=== PATIENT | female | born 1985 | race Native Hawaiian/Other Pacific Islander ===

== ENCOUNTER 2016-11-13 23:06 | Emergency (ER) | payer MEDICAID, OTHER ==
[2016-11-13 23:07] VITALS: BMI 23.8
[2016-11-13 23:24] VITALS: BP 100/50; PULSE 86; RESP 16; TEMP 97; O2SAT 100
--- NOTE | 2016-11-14 00:45 | C.PDOC ---
History Of Present Illness Patient is a 30 year old female who is P:1011 presents to the ER with a complaint of a rash on the genital and buttocks area for the past 2 days. Patient states it is tender to touch and notes mild nausea during with occasional vomiting, LMP was 07/28. Patient denies dysuria, hematuria, discharge from rash, vaginal bleeding, or vaginal discharge. Chief Complaint (Nursing): Abnormal Skin Integrity History Per: Patient History/Exam Limitations: no limitations Onset/Duration Of Symptoms: Days (2) Current Symptoms Are (Timing): Still Present Quality Of Symptoms: Painful Recent travel outside of the [place]: No Past Medical History Reviewed: Historical Data, Nursing Documentation, Vital Signs Vital Signs: Last Vital Signs Temp 97 F L 11/13/16 23:20 Pulse 86 11/13/16 23:20 Resp 16 11/13/16 23:20 BP 100/50 L 11/13/16 23:20 Pulse Ox 100 11/14/16 00:56 - Medical History PMH: Gastritis Surgical History: Cholecystectomy, Endoscopy - [facility] Procedures DELIVERY OF PRODUCTS OF CONCEPTION, EXTERNAL APPROACH (06/18/15) DIVISION OF FEMALE PERINEUM, EXTERNAL APPROACH (06/18/15) Family History: States: Unknown Family Hx - Social History Hx Alcohol Use: No Hx Substance Use: No - Immunization History Hx Influenza Vaccination: No Review Of Systems Genitourinary: Positive for: Rash. Negative for: Dysuria, Hematuria, Vaginal Discharge, Vaginal Bleeding Physical Exam - Physical Exam Appears: Well, Non-toxic Skin: Normal Color, Warm, Dry Head: Atraumatic, Normacephalic Oral Mucosa: Moist Chest: Symmetrical, No Tenderness Cardiovascular: Rhythm Regular, No Murmur Respiratory: Normal Breath Sounds, No Rales, No Rhonchi, No Wheezing Gastrointestinal/Abdominal: Soft, No Tenderness Pelvic: Other (Vesicles noted on and around labia majora and up to right upper thigh.) Neurological/Psych: Oriented x3, Normal Speech, Normal Cognition Additional Physical Exam Comments: Had a female grinder dresser present for physical exam. ED Course And Treatment O2 Sat by Pulse Oximetry: 100 (Room air) Pulse Ox Interpretation: Normal Progress Note: Zovirax PO administered. Disposition - Disposition Referrals: Bill Hunt, [Non-Staff] - Disposition: HOME/ ROUTINE Disposition Time: 00:05 Condition: GOOD Additional Instructions: Thank you for letting us take care of you today. Your provider was Dr. Joy. You were treated for genital herpes. The emergency medical care you received today was directed at your acute symptoms. If you were prescribed any medication, please fill it and take as directed. It may take several days for your symptoms to resolve. Return to the Emergency Department if your symptoms worsen, do not improve, or if you have any other problems. Please contact your doctor or call one of the physicians/clinics you have been referred to that are listed on the Patient Visit Information form that is included in your discharge packet. Bring any paperwork you were given at discharge with you along with any medications you are taking to your follow up visit. Our treatment cannot replace ongoing medical care by a primary care provider (PCP) outside of the emergency department. Thank you for allowing the [facility] team to be part of your care today. Follow up with your [facility]ATE[employer] [employer]YER doctor in 2-3 days for re-evaluation. Prescriptions: Acyclovir [Zovirax] 400 mg PO TID #21 tab Instructions: Genital Herpes Simplex (ED) - Clinical Impression Clinical Impression: Dermatitis - Scribe Statement The provider has reviewed the documentation as recorded by the Scribe Lee Riley All medical record entries made by the Clayibvernon were at my direction and personally dictated by me. I have reviewed the chart and agree that the record accurately reflects my personal performance of the history, physical exam, medical decision making, and the department course for this patient. I have also personally directed, reviewed, and agree with the discharge instructions and disposition.
== END 2016-11-14 00:10 | disposition home or self-care (01) ==
LOC: C.ER 23:06
DX: O98.519 Other viral diseases complicating pregnancy, unspecified trimester (principal); A60.04 Herpesviral vulvovaginitis; Z3A.00 Weeks of gestation of pregnancy not specified

== ENCOUNTER 2016-11-15 01:01 | Emergency (ER) | payer OTHER ==
[2016-11-15 01:01] VITALS: BMI 23.8
--- NOTE | 2016-11-15 02:00 | C.PDOC ---
History Of Present Illness A 30 y/o female presents to the ER c/o a painful rash to the vaginal and buttock regions for the past 4 days. Pt was seen here 2 days prior for the same symptoms and was prescribed Acyclovir. Pt returned because of worsening pain. Pt denies fever, chills, trauma, dysuria, hematuria, vaginal discharge or bleeding, or any other complaints. Time Seen by Provider: 11/15/16 01:38 Chief Complaint (Nursing): Abnormal Skin Integrity History Per: Patient History/Exam Limitations: no limitations Onset/Duration Of Symptoms: Days Current Symptoms Are (Timing): Still Present Quality Of Symptoms: Painful Severity: Mild Recent travel outside of the [place]: No Additional History Per: Patient Past Medical History Reviewed: Historical Data, Nursing Documentation, Vital Signs Vital Signs: Last Vital Signs Temp 97.9 F 11/15/16 05:08 Pulse 85 11/15/16 05:08 Resp 16 11/15/16 05:08 BP 91/58 L 11/15/16 05:08 Pulse Ox 97 11/15/16 05:59 - Medical History PMH: Gastritis Denies: Chronic Kidney Disease Surgical History: Cholecystectomy, Endoscopy - [facility] Procedures DELIVERY OF PRODUCTS OF CONCEPTION, EXTERNAL APPROACH (06/18/15) DIVISION OF FEMALE PERINEUM, EXTERNAL APPROACH (06/18/15) Family History: States: Unknown Family Hx - Social History Hx Alcohol Use: No Hx Substance Use: No - Immunization History Hx Influenza Vaccination: No Review Of Systems Except As Marked, All Systems Reviewed And Found Negative. Constitutional: Negative for: Fever, Chills, Other (Trauma) Genitourinary: Negative for: Dysuria, Hematuria, Vaginal Discharge, Vaginal Bleeding Skin: Positive for: Rash (Painful) Physical Exam - Physical Exam Appears: Non-toxic, No Acute Distress Skin: Warm, Dry, Rash (Vesicular rash with crusting over the right labia majora which extent to the perineum and right buttock.) Head: Atraumatic, Normacephalic Eye(s): bilateral: Normal Inspection, PERRL, EOMI Oral Mucosa: Moist Neck: Normal ROM, Supple Chest: Symmetrical, No Tenderness Cardiovascular: Rhythm Regular, No Friction Rub, No Murmur Respiratory: Normal Breath Sounds, No Rales, No Rhonchi, No Wheezing Gastrointestinal/Abdominal: Normal Exam, Soft, No Tenderness, Other (Gravid) Neurological/Psych: Oriented x3, Normal Speech, Normal Cognition, Normal Motor Gait: Steady ED Course And Treatment O2 Sat by Pulse Oximetry: 97 (RA) Pulse Ox Interpretation: Normal Medical Decision Making Medical Decision Making: Plans: -Tylenol -Morphine -Oxycodone -Lidocaine -Reassess and disposition The case was discussed with Dr. Drake (OBGYN) who states that the patient does not require admission and is on the appropriate medication of acyclovir. He states he will see the patient in the clinic for follow up. On first re-exam, the patient reports that the percocet and lidocaine had no improvement. Morphine Im given. On second re-exam, patient still had moderate pain Morphine IV and tylenol given. On third exam, the patient reports improvement of symptoms. Ambulatory in the ED with steady gait. Lungs are CTA, heart is RRR, abdomen is soft, non-tender and patient is tolerating Po well. Follow up with the medical doctor within 1-2 days without fail, Return if worsened. Disposition - Disposition Referrals: Andrews Drake [Staff Provider] - Disposition: HOME/ ROUTINE Disposition Time: 05:00 Condition: IMPROVED Additional Instructions: Follow up with the OBGYN within 1-2 days without fail. Return if worsened. Prescriptions: Lidocaine 2% [Xylocaine 2%] 1 appl TP BID #2 tube oxyCODONE/Acetaminophen [Percocet 5/325 mg Tab] 1 tab PO QID PRN #15 tab PRN Reason: Pain Instructions: Shingles (ED) - Clinical Impression Clinical Impression: Herpes zoster - Scribe Statement The provider has reviewed the documentation as recorded by the Scribvernon conway All medical record entries made by the Scribe were at my direction and personally dictated by me. I have reviewed the chart and agree that the record accurately reflects my personal performance of the history, physical exam, medical decision making, and the department course for this patient. I have also personally directed, reviewed, and agree with the discharge instructions and disposition.
[2016-11-15] MEDS ORDERED: Oxycodone/Acetaminophen 5/325 mg Tab PO STA (02:19)
[2016-11-15] MEDS ORDERED: Lidocaine 2% Viscous 100 ml PO STA (02:21)
[2016-11-15] MEDS ORDERED: Oxycodone/Acetaminophen 5/325 mg Tab ONE (02:33)
[2016-11-15 05:09] VITALS: BP 91/58; PULSE 85; RESP 16; TEMP 97.9
[2016-11-15 05:52] VITALS: O2SAT 97
== END 2016-11-15 05:09 | disposition home or self-care (01) ==
LOC: C.ER 01:01
DX: B02.9 Zoster without complications (principal)
CPT/HCPCS: 96372; 96374; 99284; J2270

== ENCOUNTER 2017-03-21 09:58 | Emergency (ER) | payer OTHER ==
[2017-03-21 10:29] VITALS: BMI 23.2
--- NOTE | 2017-03-21 10:34 | OBHP ---
Datetime: 03/21/2017 10:30 IP Adm Impression: , intrauterine ; No Active Labor IP Chief Complaint Other: itching in the whole body x 1 week IP Admit Plan: Observation/Evaluation Admit Comment, IP Provider: at 35+weeks came with c/o itching of the whole body x 1 week, no ct xs, vb, lof,+fm,no rash. obhx 1 x pmh den med pnv all nkda psh cholecystectomy soch den a/p at 35+weks itching r/o choleostasis of preg. blood work cont eugenia and efm will cont observsation Pelvic Type - PN: Adequate Extremities - PN: Normal Abdomen - PN: Normal Back - PN: Normal Breast - PN: Not Done Lungs - PN: Normal Heart - PN: Normal Thyroid - PN: Not Done Neurologic - PN: Normal HEENT - PN: Normal General - PN: Normal FHR - Baseline A Provider: 130 Contraction Comments Provider: none Comments, ACOG Physical Exam: gravid,non tnder ext no edema,no calf ten no rash Vital Signs Provider: Reviewed; Within Normal Limits NICHD Variability Prov Fetus A: Moderate 6-25bpm NICHD Accel Fetus A IP Provider: 15X15 FHR Category Provider Fetus A: Category I Genitourinary Exam: Normal DTRs - PN: Normal
[2017-03-21 10:56] LABS: HEMATOCRIT 32.5 % (34.0-47.0); MEAN CELL VOLUME 87.3 fL (81.0-99.0); MEAN CORPUSCULAR HEMOGLOBIN 28.9 pg (27.0-31.0); MEAN CORPUSCULAR HGB CONC 33.1 g/dL (33.0-37.0); RED CELL DISTRIBUTION WIDTH 16.5 % (11.5-14.5); WHITE BLOOD COUNT 9.9 K/uL (4.8-10.8)
[2017-03-21 10:58] LABS: RBC URINE < 1 /hpf (0-3); URINE BILIRUBIN NEGATIVE (NEGATIVE); URINE BLOOD NEGATIVE (NEGATIVE); URINE COLOR Yellow (YELLOW); URINE GLUCOSE (UA) NORMAL (Normal); URINE KETONE NEGATIVE (NEGATIVE); URINE LEUKOCYTE ESTERASE TRACE Leu/uL (Negative); URINE PROTEIN NEGATIVE (NEGATIVE); URINE UROBILINOGEN NORMAL mg/dL (0.2-1.0); WBC URINE 2 /hpf (0-5)
[2017-03-21 11:04] LABS: CHLORIDE 110 mmol/L (98-107)
[2017-03-21 11:05] LABS: POTASSIUM 3.8 mmol/L (3.6-5.2); SODIUM 136 mmol/L (132-148)
[2017-03-21 11:07] LABS: BILIRUBIN,DIRECT 0.4 mg/dL (0.0-0.4); BILIRUBIN,TOTAL 0.7 mg/dL (0.2-1.3); CARBON DIOXIDE 18 mmol/L (22-30); GFR AFRICAN-AMERICAN > 60
[2017-03-21 11:08] LABS: ALB/GLOB RATIO 1.1 (1.0-2.1); ALKALINE PHOSPHATASE 134 U/L (38-126); ALT/SGPT 37 U/L (9-52); AST/SGOT 32 U/L (14-36); BLOOD UREA NITROGEN 5 mg/dL (7-17); CALCIUM 9.6 mg/dl (8.6-10.4); GLUCOSE,RANDOM 105 mg/dL (65-105); TOTAL PROTEIN 6.4 g/dL (6.3-8.3)
--- NOTE | 2017-03-21 12:03 | OBHP ---
Datetime: 03/21/2017 11:59 Admit Comment, IP Provider: pt was sen at bed side. feels ok. blood work normal plan dc home urisidiol 250 mg bid benadryl prn f/u in clinic on wednesday or wednesday FHR - Baseline A Provider: 130 Contraction Comments Provider: none NICHD Variability Prov Fetus A: Moderate 6-25bpm NICHD Accel Fetus A IP Provider: 15X15 FHR Category Provider Fetus A: Category I
--- NOTE | 2017-03-21 12:05 | OBDCSUM ---
Datetime: 03/21/2017 12:02 Discharged to, Provider: Home Follow up at, Provider: [facility] Follow up in weeks, Provider: 2-3 Discharge Comment, Provider: de home urisidiol 250 mg bid benadryl prn f/u in clinic on wednesday or wednesday Discharge Diagnosis Prov Other: 35weeks nst r/o choleostasis
[2017-03-21 18:40] VITALS: BP 93/62; PULSE 84; RESP 16; TEMP 98.3; O2SAT 99
[2017-03-25 20:06] LABS: CHENODEOXYCHOLIC ACID 1.9 umol/L (< OR = 3.9); CHOLIC ACID 5.4 umol/L (< OR = 2.8); DEOXYCHOLIC ACID <1.0 umol/L (< OR = 2.3)
== END 2017-03-21 12:05 | disposition home or self-care (01) ==
LOC: C.EROB 09:58
DX: O26.893 Other specified pregnancy related conditions, third trimester (principal); Z3A.35 35 weeks gestation of pregnancy

== ENCOUNTER 2017-04-15 09:32 | Inpatient (IN) | payer MEDICAID, OTHER ==
[2017-04-13 09:55] VITALS: BMI 23.7
[2017-04-15] MEDS ORDERED: ceFAZolin IV 2 gm in Dextrose 2 GM/100 ML BAG IVPB ONE (10:31)
[2017-04-15] MEDS ORDERED: Sodium Citrate/Citric Acid 15 ml Sol PO ONE (10:31)
--- NOTE | 2017-04-15 10:36 | OBHP ---
Datetime: 04/15/2017 10:33 IP Adm Impression: Term, intrauterine IP Admit Plan: Admit to unit Admit Comment, IP Provider: 31 y/o @ 38.5 wks GA with intraheptaic cholestais of with severe itching and decreaesd fm. pt reports contraction pain since this mpronving eveyr 5 min increa isng intenseity and severyity, beau lof, vb. Ante goes ot Clni Dr Drake OB: 2 FTS , one 6 hours post delivery ASSISTED LIVING DIRECTOR: caroline PMH: intrahepatic cholstais of PSH: Cholecycstecotmy 2007 FHX: dnies SH:X negatieve MEDS :PNV, omeprazie NKDA A/P @ 38.5 wks GA with intrahepatic cholestais -admit for delivery as per PMD Dr Karan HOOPER AdmitDate IP: 38.5 IP Chief Complaint: Uterine contractions
[2017-04-15 11:50] LABS: BASO % 0.4 % (0.0-2.0); EOS # 0.1 K/uL (0.0-0.7); EOS % 1.1 % (0.0-4.0); HEMATOCRIT 35.7 % (34.0-47.0); LYMPH # 1.6 K/uL (1.0-4.3); LYMPH % 16.8 % (20.0-40.0); MEAN CELL VOLUME 89.3 fL (81.0-99.0); MEAN CORPUSCULAR HEMOGLOBIN 29.6 pg (27.0-31.0); MEAN CORPUSCULAR HGB CONC 33.2 g/dL (33.0-37.0); MEAN PLATELET VOLUME 10.2 fL (7.2-11.7); MONO # 0.7 K/uL (0.0-0.8); NRBC % 0.1 % (0.0-2.0); RED CELL DISTRIBUTION WIDTH 17.7 % (11.5-14.5); WHITE BLOOD COUNT 9.4 K/uL (4.8-10.8)
[2017-04-15 12:03] LABS: RBC URINE < 1 /hpf (0-3); URINE BILIRUBIN NEGATIVE (NEGATIVE); URINE BLOOD NEGATIVE (NEGATIVE); URINE COLOR Yellow (YELLOW); URINE GLUCOSE (UA) NORMAL (Normal); URINE KETONE NEGATIVE (NEGATIVE); URINE LEUKOCYTE ESTERASE TRACE Leu/uL (Negative); URINE PROTEIN NEGATIVE (NEGATIVE); URINE UROBILINOGEN NORMAL mg/dL (0.2-1.0)
[2017-04-15 12:04] LABS: AST/SGOT 60 U/L (14-36); WBC URINE 4 /hpf (0-5)
[2017-04-15] MEDS ORDERED: ceFAZolin IV 2 gm in Dextrose 1 GM/50 ML BAG IVPB ONE (12:05)
[2017-04-15] MEDS ORDERED: Sodium Citrate/Citric Acid 15 ml Sol ONE (12:05)
[2017-04-15] MEDS ORDERED: Phenylephrine 10 mg/ml Inj ONE (12:11)
[2017-04-15] MEDS ORDERED: Morphine 1 mg/ml preservative-free Inj(Duramorph) ONE (12:12)
[2017-04-15] MEDS ORDERED: Oxytocin 20 units in LR 2,000 ML IV ONE (12:40)
--- NOTE | 2017-04-15 13:19 | OBDS ---
DELIVERY PERSONNEL Delivery Doctor: Gunner Drake MD Scrub Nurse: Jacqueline [employer] Architect: Ivet Newton RN Anesthesiologist: Dr. Sánchez MATERNAL INFORMATION Delivery Anesthesia: Spinal Placenta Cultured: Yes Maternal Complications: None Provider Comments: Uncomplicated Primary Low Transverse section with delivery of a viable m parag infant scores of 9 and 9. EBL- 500mls LABOR SUMMARY EDC: 04/24/2017 00:00 No. Babies in Womb: 1 Attempted: No Labor Anesthesia: Intrathecal LABOR INFORMATION Reason for Induction: Not Applicable Oxytocin: N/A Antibiotics # of Doses: 1 Steroids Given: None Reason Steroids Not Administered: Not Applicable MEMBRANES Membranes Rupture Method: Artificial Rupture of Membranes: 04/15/2017 12:37 Length of Rupture (hrs): 0.00 Amniotic Fluid Color: Clear Amniotic Fluid Amount: Moderate Amniotic Fluid Odor: Normal STAGES OF LABOR Stage 3 hrs: 0 Stage 3 min: 1 CSECTION DELIVERY Primary Indication: Other Other Primary Indication: cholistasis CSection Urgency: Elective CSection Incidence: Primary Labor: N/A Elective: Elective CSection Incision: Lower Uterine Transverse Uterine Closure: Double-layer closure BABY A INFORMATION Infant Delivery Date/Time: 04/15/2017 12:37 Method of Delivery: Born in Route : No : N/A Forceps: N/A Vacuum Extraction: N/A Shoulder Dystocia : No SHOULDER DYSTOCIA BABY A Delivery Date/Time: 04/15/2017 12:37 PRESENTATION/POSITION BABY A Presentation: Cephalic Cephalic Presentation: Vertex Vertex Position: Left Occipital Anterior Breech Presentation: N/A PLACENTA INFORMATION BABY A Placenta Delivery Time : 04/15/2017 12:38 Placenta Method of Delivery: Manual Removal Placenta Status: Delivered SCORES BABY A Heart Rate 1 min: >100 bpm Resp Effort 1 min: Good Cry Reflex Irritability 1 min: Cough or Sneeze or Pulls Away Muscle Tone 1 min: Active Motion Color 1 min: Body [place], Extremities Blue Resuscitation Effort 1 min: Tactile Stimulation SCORE 1 MIN: 9 Heart Rate 5 min: >100 bpm Resp Effort 5 min: Good Cry Reflex Irritability 5 min: Cough or Sneeze or Pulls Away Muscle Tone 5 min: Active Motion Color 5 min: Body [place], Extremities Blue SCORE 5 MIN: 9 INFANT INFORMATION BABY A Gestational Age at Delivery: 38.5 Gestational Status: Term Outcome : Liveborn Condition : Stable Infant Sex: Male IDENTIFICATION/MEDS BABY A ID Band Number: [id number] ID Band Location: Left Leg; Left Arm Sensor Applied: Yes Sensor Number: [id number] Sensor Location : Cord Clamp Vitamin K Given : Not Given Erythromycin Given: Not Given WEIGHT/LENGTH BABY A Infant Birthweight (gms): 3260 Infant Weight (lb): 7 Infant Weight (oz): 3 Infant Length Inches: 19.50 Length cms: 49.5 CORD INFORMATION BABY A No. Cord Vessels: 3 Nuchal Cord : N/A Cord Blood Taken: Yes Suction: Mouth; Nose ASSESSMENT BABY A Infant Complications: None Physical Findings at Delivery: Within Normal Limits Infant Respirations: Appears Normal Flight Hostess/ALS Called : No Infant Care By: Glory Mancia RN Transferred To: Remains with Mother
--- NOTE | 2017-04-15 13:21 | PCM.SURG1 ---
Surgeon's Initial Post Op Note - Surgeon's Notes Surgeon: Dr Drake Building Drafting Officer: Arline Anne rodney( Medical Student) Type of Anesthesia: Spinal Anesthesia Administered By: Dr Galvez Pre-Operative Diagnosis: IUP at 38wks. Cholestasis of . Previous Operative Findings: Live male infant with BW of 7Ibs 3 oz, scores of 9 and 9. Normal uterus ,tubes and ovaries. IVFluidds- 900mls. EBL- 500mls. Urine Output- 600mls Post-Operative Diagnosis: Same as preop Diagnosis Operation Performed: Primary Low Transverse Section Specimen/Specimens Removed: Placenta Estimated Blood Loss: EBL {In ML}: 500 Blood Products Given: N/A Post-Op Condition: Good Date of Surgery/Procedure: 04/15/17 Time of Surgery/Procedure: 13:22
[2017-04-15] MEDS: Simethicone 80 mg Chewtab PO SCH ×3 (16:22→21:24)
[2017-04-15] MEDS: cefOXitin IV 2 gm in Dextrose 2 GM/50 ML BAG IVPB SCH (21:00)
[2017-04-15] MEDS ORDERED: HYDROmorphone 1 mg/ml ISec IVP PRN (21:50)
[2017-04-16] MEDS: cefOXitin IV 2 gm in Dextrose 2 GM/50 ML BAG IVPB SCH ×2 (04:10→12:01)
[2017-04-16] MEDS: Oxycodone/Acetaminophen 5/325 mg Tab PO PRN ×4 (06:10→20:47)
[2017-04-16 07:21] LABS: BASO % 0.4 % (0.0-2.0); EOS # 0.1 K/uL (0.0-0.7); HEMATOCRIT 33.9 % (34.0-47.0); LYMPH # 1.1 K/uL (1.0-4.3); LYMPH % 10.3 % (20.0-40.0); MEAN CELL VOLUME 88.7 fL (81.0-99.0); MEAN CORPUSCULAR HEMOGLOBIN 29.6 pg (27.0-31.0); MEAN CORPUSCULAR HGB CONC 33.4 g/dL (33.0-37.0); MEAN PLATELET VOLUME 10.7 fL (7.2-11.7); MONO # 0.7 K/uL (0.0-0.8); MONO % 5.9 % (0.0-10.0); WHITE BLOOD COUNT 11.1 K/uL (4.8-10.8)
[2017-04-16] MEDS: Simethicone 80 mg Chewtab PO SCH ×3 (09:28→22:06)
[2017-04-17] MEDS: Oxycodone/Acetaminophen 5/325 mg Tab PO PRN ×4 (06:44→22:21)
[2017-04-17] MEDS: Simethicone 80 mg Chewtab PO SCH ×5 (09:31→22:24)
[2017-04-17] MEDS ORDERED: Influenza Vaccine 60 mcg/0.5 mL SYR (4YR UP) IM ONE (14:10)
[2017-04-18] MEDS: Oxycodone/Acetaminophen 5/325 mg Tab PO PRN ×2 (03:10→09:34)
--- NOTE | 2017-04-18 07:40 | OBPPN ---
Datetime: 04/18/2017 07:36 PP Pain Prov: Within normal limits PP Nausea Prov: Denies PP Flatus Prov: Yes PP Abdomen/Uterus Prov: Normal PP Lochia Prov: Normal PP CVA Tenderness Prov: Not Done PP Extremities Prov: Normal PP Comments Phys Exam Prov: fudus below umblicus ext mild edema,no calf ten incision clean and dry PP Impression Prov: Normal progression PP Plan Prov: Discharge PP Progress Note Prov: pt was seen at bed side, pain under control, no n/v, tolerating deit,voiding, min lochia, flatus + pod#3 s/p c/s dc home no sex percocet, prn f/u in [facility] Vital Signs Provider PP: Reviewed; Within Normal Limits Datetime: 04/16/2017 11:40 PP BM Prov: No PP Breasts Prov: Normal PP Heart Prov: Normal PP Lungs Prov: Normal PP Vulva/Perineum Prov: Normal PP C/S Incision Prov: Normal PP Progress Prov: Normal
--- NOTE | 2017-04-18 07:40 | OBDCSUM ---
Datetime: 04/18/2017 07:38 Discharged to, Provider: Home Follow up at, Provider: [facility] Disch Instr Diet: Regular Discharge Diagnosis, Provider: Term Delivered Follow up in weeks, Provider: dr raheem Poe Activity Restrictions: No exercising; No lifting; Minimize walking; Minimize stair-climbing; N o sexual activity; Nothing in vagina - [place], tampons, douche Discharge Comment, Provider: dc home no sex percocet, prn f/u in [facility] Discharge Diagnosis Prov Other: s/p c/s
[2017-04-18 08:32] VITALS: PULSE 71; RESP 18; TEMP 97.4; O2SAT 98
[2017-04-18] MEDS: Simethicone 80 mg Chewtab PO SCH (09:34)
[2017-04-18 14:58] VITALS: BP 88/56
--- NOTE | 2017-04-19 10:09 | OP ---
PROCEDURE DATE: PREOPERATIVE DIAGNOSIS: Intrauterine at 38 weeks with cholestasis of , history of previous . POSTOPERATIVE DIAGNOSIS: Intrauterine at 38 weeks with cholestasis of , history of previous . PROCEDURE: Primary low transverse section performed on 04/15/2017. SURGEON: Andrews Drake MD CELL POURER: Dr. Muller and Ivan Nunn, (medical student). Assistance for the procedure was needed for exposure of tissues and help in the delivery of the baby. Both assistance remained with the surgery throughout its entire length. TYPE OF ANESTHESIA: Spinal. ANESTHESIA ADMINISTERED BY: Dr. Galvez. OPERATIVE FINDINGS: A live male in bed, weight of 7 pounds and 3 ounces, an score of 9 in the 1st and 5th minute respectively. The uterus as well as the fallopian tubes and ovaries appeared normal bilaterally. Baby was delivered in cephalic presentation with a fundal placenta and clear amniotic fluid. IV fluid intake is about 900 mL. ESTIMATED BLOOD LOSS: 500 mL URINE OUTPUT: About 600 mL of clear urine. COMPLICATIONS: There were no complications. DESCRIPTION OF PROCEDURE: After obtaining informed consent, the patient was sent to the OR with IV running, Varma catheter in place. The patient was sat on the OR table and after adequate spinal anesthesia was placed in a supine position with a left lateral tilt. The patient was then prepped and draped in the usual sterile fashion. A Pfannenstiel skin incision was made about 2.5 cm from the pubic symphysis using a scalpel. This incision was continued through the subcutaneous tissues through the rectus fascia where a transverse incision was made in the midportion using the Bovie device. This incision was carried to both sides in a blunt fashion. The rectus fascia was then lifted off the rectus muscles both superiorly and inferiorly by means of a blunt dissection and sharp dissection with Umana scissors. The rectus muscles was in a midline to expose the peritoneum, which was tented between 2 Portia clamps and sharply entered with good visualization of a bladder. Once abdominal cavity was entered, the above findings were noted. The vesicouterine fold of peritoneum was identified and incised in a transverse fashion using the Metzenbaum scissors, retracted inferiorly to expose the lower uterine segment. A low transverse incision using the scalpel was made. The incision was passed through the myometrium layers through the amniotic membranes were identified. Incision was then extended to both sides in a blunt fashion. The baby which was in cephalic presentation was delivered after wrapping the amniotic membranes with a pick-up forceps. Baby cried immediately after . Mouth and nostrils were bulb suctioned. The three-vessel cord was clamped and cut and the baby given to the nurse. Umbilical cord blood was obtained and the placenta was manually removed from the uterine cavity. The uterus was brought out of the abdominal cavity. The uterine cavity cleaned with dry laparotomy pad. Uterine incision was then closed in 2 layers using Vicryl 0. The first layer in a running locked fashion and the second layer in a running fashion and imbricating the first layer. This repair was done and hemostasis was noted. Irrigation of the pelvis with warmed normal saline was undertaken and the blood clots were removed. The uterus was returned into the abdominal cavity and once hemostasis was noted, attention was turned to the anterior abdominal wall, which was closed in layers with 2-0 Vicryl for the peritoneum and the rectus muscles. The rectus fascia was reapproximated using Vicryl 0. The subcutaneous tissue was brought together with 2-0 plain cat gut. The skin was closed in a subcuticular fashion using 4-0 Vicryl. All counts of instruments, laparotomy pads, and needles used were correct x3 and the patient was sent to the recovery room awake and in stable condition. Andrews Drake MD LILLY
== END 2017-04-18 10:56 | disposition home or self-care (01) | DRG 765 ==
LOC: C.EROB 09:32 → C.4D 10:45 → C.4M 16:01
PROVIDERS: ADMIT Obstetrics & Gynecology; ATTEND Obstetrics & Gynecology
PROC: 10D00Z1 Extraction of Products of Conception, Low, Open Approach (ICD-10-PCS; principal; 2017-04-15)
DX: O26.62 Liver and biliary tract disorders in childbirth (principal); K83.1 Obstruction of bile duct; O36.8130 Decreased fetal movements, third trimester, not applicable or unspecified; Z3A.38 38 weeks gestation of pregnancy; Z37.0 Single live birth